=== PATIENT | female | born 2000 | race Caucasian/White ===

== ENCOUNTER 2019-12-02 00:03 | Emergency (ER) | payer OTHER ==
[~2019-12-02] VITALS: Ht 167.6 cm; Wt 68.0 kg
[2019-12-02] MEDS ORDERED: HYDROcodone-ACET 10/325MG TAB PO ONE (00:45)
[2019-12-02] MEDS ORDERED: ONDANSETRON HCL 4 MG/2 ML VIAL IM ONE (01:00)
[2019-12-02] MEDS ORDERED: ONDANSETRON HCL 4 MG/2 ML VIAL IV ONE (01:00)
[2019-12-02] MEDS ORDERED: MORPHINE SULFATE 4 MG/ML SYR/VIAL IV ONE (01:00)
[2019-12-02] MEDS ORDERED: LORazepam 0.5 MG TAB PO ONE (01:00)
[2019-12-02] MEDS ORDERED: SODIUM CHLORIDE 0.9% 1,000 ML IV ONE (01:00)
[2019-12-02] MEDS ORDERED: MORPHINE SULF INJ 2 MG/ML SYRINGE 1ML IM ONE (01:00)
[2019-12-02 01:24] LABS: Basophils # (auto) 0.1 10 ^3/uL (0-0.2); Basophils % (auto) 0.6 % (0.0-2.0); Eosinophils # (auto) 0 10 ^3/uL (0-0.8); Eosinophils % (auto) 0.3 % (0.0-7.0); Hematocrit 41.7 % (36.0-46.0); Lymphocytes # (auto) 2.9 10 ^3/uL (0.4-5.4); Lymphocytes % (auto) 22.8 % (10.0-50.0); Mean Corpuscular Hemoglobin 29.5 pg (28.0-32.0); Mean Corpuscular Hgb Conc. 33.7 g/dL (32.0-36.0); Mean Corpuscular Volume 87.5 fL (80.0-100.0); Monocytes # (auto) 0.8 10 ^3/uL (0-1.3); Monocytes % (auto) 6.2 % (0.0-12.0); Neutrophils # (auto) 8.9 10 ^3/uL (1.6-8.6); Neutrophils % (auto) 70.1 % (37.0-80.0); Nucleated Red Blood Cells % 0.1 %; Platelet Count (auto) 352 10^3/uL (140-450); Red Blood Cells 4.77 10^6/uL (4.0-5.20); Red Cell Distribution Width 13.1 % (11.8-14.3); White Blood Cell 12.6 10^3/uL (4.4-10.8)
[2019-12-02 01:30] LABS: Calcium 9.2 mg/dL (8.5-10.1)
[2019-12-02 01:33] LABS: BUN/Creatinine Ratio 10.8
[2019-12-02 01:35] LABS: Bilirubin, Total 0.8 mg/dL (0.2-1.0); Total Protein 8.3 g/dL (6.4-8.2)
[2019-12-02 01:40] LABS: Potassium 2.8 mmol/L (3.5-5.1)
[2019-12-02] MEDS ORDERED: POTASSIUM EFFERVESENT TAB 25 MEQ PO ONE (02:30)
[2019-12-02 03:17] VITALS: BP 123/72
== END 2019-12-02 03:40 | disposition home or self-care (01) ==
LOC: EDBD 00:03 → ER 00:07
DX: R10.84 Generalized abdominal pain (principal); R11.2 Nausea with vomiting, unspecified; R53.83 Other fatigue
CPT/HCPCS: 36415; 80053; 82150; 83690; 85025; 96372; 99284; J2270; J2405

== ENCOUNTER 2019-12-03 14:32 | Emergency (ER) | payer OTHER ==
[~2019-12-03] VITALS: Ht 162.6 cm; Wt 68.0 kg
[2019-12-03 14:43] VITALS: BP 150/82
[2019-12-03] MEDS ORDERED: MORPHINE SULF INJ 2 MG/ML SYRINGE 1ML IV ONE (15:00)
[2019-12-03] MEDS ORDERED: METOCLOPRAMIDE HCL 5MG/ml INJ 2ml VIAL IV ONE (15:00)
[2019-12-03 15:25] LABS: Basophils # (auto) 0.1 10 ^3/uL (0-0.2); Basophils % (auto) 1.4 % (0.0-2.0); Eosinophils # (auto) 0 10 ^3/uL (0-0.8); Eosinophils % (auto) 0.2 % (0.0-7.0); Hemoglobin 12.5 g/dL (12.2-16.2); Lymphocytes % (auto) 18.9 % (10.0-50.0); Mean Corpuscular Hemoglobin 29.9 pg (28.0-32.0); Mean Corpuscular Hgb Conc. 33.8 g/dL (32.0-36.0); Mean Corpuscular Volume 88.3 fL (80.0-100.0); Monocytes # (auto) 0.6 10 ^3/uL (0-1.3); Monocytes % (auto) 5.6 % (0.0-12.0); Neutrophils # (auto) 7.7 10 ^3/uL (1.6-8.6); Neutrophils % (auto) 73.9 % (37.0-80.0); Nucleated Red Blood Cells % 0.1 %; Platelet Count (auto) 253 10^3/uL (140-450); Red Blood Cells 4.19 10^6/uL (4.0-5.20); Red Cell Distribution Width 13.2 % (11.8-14.3); White Blood Cell 10.5 10^3/uL (4.4-10.8)
[2019-12-03 15:50] LABS: Albumin 3.7 g/dL (3.4-5.0); BUN/Creatinine Ratio 11.8; Calcium 8.8 mg/dL (8.5-10.1); Potassium 3.2 mmol/L (3.5-5.1)
[2019-12-03 15:53] LABS: Bilirubin, Total 1.1 mg/dL (0.2-1.0); Total Protein 7.5 g/dL (6.4-8.2)
== END 2019-12-03 15:39 | disposition left against medical advice (07) ==
LOC: EDBD 14:32 → ER 14:32
DX: R53.1 Weakness (principal); Z53.21 Procedure and treatment not carried out due to patient leaving prior to being seen by health care provider
CPT/HCPCS: 36415; 80053; 85025; 96374; 96375; J2270; J2765